=== PATIENT | male | born 1945 | race Caucasian/White ===

== ENCOUNTER 2019-06-14 06:26 | Day surgery (SDC) | payer OTHER ==
--- NOTE | 2019-06-13 14:39 | RAD REPORT ---
EXAM DESCRIPTION: RAD - Chest Pa And Lat (2 Views) - 06/13/2019 2:33 pm CLINICAL HISTORY: preop Chest pain. COMPARISON: No comparisons FINDINGS: The lungs are clear. The heart is normal in size. No displaced fractures. IMPRESSION: No acute or concerning finding suspected.
[2019-06-13 15:34] LABS: Absolute Lymphocytes (CBC) 1.4 K/uL (0.7-4.9); Basophils % 0.3 % (0-1.3); Hematocrit 44.7 % (39.6-49.0); Lymphocytes % 26.8 % (15.3-44.8); MPV 9.9 fL (7.6-11.3); RBC Red Blood Cell Count 4.95 M/uL (4.33-5.43)
[2019-06-13 15:51] LABS: BUN Blood Urea Nitrogen 12 mg/dL (7-18); Bicarbonate 28 mmol/L (21-32); Glucose Level 82 mg/dL (74-106); Potassium 4.2 mmol/L (3.5-5.1); Sodium Level 139 mmol/L (136-145)
[2019-06-14] MEDS ORDERED: Ringers Lactate 1,000 ML IV ONE (07:08)
[2019-06-14] MEDS ORDERED: CEFAZOLIN/SWI 1gm 1 GM/10 ML SYR ONE (07:38)
[2019-06-14] MEDS ORDERED: PROPOFOL 200 MG/20 ML VIAL IV ONE (07:46)
[2019-06-14] MEDS ORDERED: ONDANSETRON 4 MG/2 ML VIAL ONE (07:47)
[2019-06-14] MEDS ORDERED: FENTANYL CITR 100 MCG/2 ML ONE (07:47)
[2019-06-14] MEDS ORDERED: MIDAZOLAM HCL 2 MG/2 ML INJ ONE (07:47)
[2019-06-14] MEDS ORDERED: LIDOCAINE 2% MPF 5 ML VIAL ONE (07:47)
[2019-06-14] MEDS: BUPIVACAINE 0.5% PF 10 ML VIAL ONE ×2 (08:10→08:14)
--- NOTE | 2019-06-14 08:38 | P.BOP ---
Preoperative diagnosis: ulcerated mass right forearm Postoperative diagnosis: BAsal cell carcinoma Primary procedure: Wide excision with frozen section of R forearm basal cell carcinoma 4x4cm Scrap Cutter: Merle Pena (Narcisa) Estimated blood loss: <5cc Specimen: mass Findings: margins free of tumor by pathologyst Anesthesia: General Complications: None Transferred to: Recovery Room Condition: Good
--- NOTE | 2019-06-14 10:50 | EKG ---
Test Date: 2019-06-13 Test Time: 14:29:15 Cover Remover: DAVID MEASUREMENT RESULTS: Intervals: Rate: 60 IL: 162 QRSD: 138 QT: 432 QTc: 432 [place]: P: 55 IL: 162 QRS: -65 T: 32 INTERPRETIVE STATEMENTS: Normal sinus rhythm Right bundle branch block Left anterior fascicular block Bifascicular block Abnormal ECG Compared to ECG 03/23/2016 15:54:24 No significant changes Electronically Signed On 06-14-19 10:49:48 CDT by Krishna Levin
--- NOTE | 2019-06-14 22:41 | OP ---
Surgeon: Kamlesh Martino MD Preoperative Diagnosis: Ulcerative mass, right forearm. basal cell carcinoma, right forearm. Procedure: Wide excision with frozen section of the right forearm, basal cell carcinoma. Estimated Blood Loss: Less than 5 cc. Anesthesia: General plus local. Findings: Basal cell carcinoma, margins free of tumor by pathologist. Indications: This is case of a 74-year-old patient, comes to us with an ulcerative mass in the right forearm, which he thinks is a trauma, but we advised him to have a removed since looked like cancer. He listened to us as a tender area were ulcerations, so we offered him wide excision with frozen se ction under anesthesia. With benefits, alternatives, and risks include, but not limited to infection , bleeding, damage to adjacent structures, anesthesia complication, recurrence, MN, or even . Shemar quarles understands we may not relieve his symptoms. He might need more than one surgical intervention. Shemar quarles understands, he may require wound care. He signed a consent. Description Of Procedure: Patient was brought to the operating room, placed in supine position. Ane sthesia was done without complication. A time-out was called. Right forearm was prepped and draped in a sterile fashion. We proceeded to remove the skin area with a mass at least 1-2 cm margins gross ly. The specimen was sent for orientation. There specimen, but they were protected and p reserved. Specimen sent to the pathologist. Come back with a frozen section. Basal cell carcinoma with margins free of tumor now. This was just a wide gap in the area, so we have to put this differe nt stitches and then we put the deep chromic and then after that, we approximated the skin with nylon , but skin cannot be completely approximated. We have a little gap in between that would require tri ple antibiotics and gauze on top until heal by secondary intention and we cannot advance the skin any more. The area was irrigated. The patient tolerated the procedure well. Sponge count and instrumen t counts were correct. The patient was sent to recovery in stable condition. Disposition: Home. Activity: As tolerated. No heavy lifting. Followup: Follow up in my office in 1 week. Call for appointment [phone]. Keep area dry for 48 ho urs, then may shower. Medications: See orders. HM/MODL Voice ID: [id number] Report ID: [id number]
== END 2019-06-14 10:20 | disposition home or self-care (01) ==
LOC: OR 06:26
PROVIDERS: ATTEND Surgery
PROC: 0HBDXZZ Excision of Right Lower Arm Skin, External Approach (ICD-10-PCS; principal; 2019-06-14 08:15)
DX: C44.612 Basal cell carcinoma of skin of right upper limb, including shoulder (principal); G47.33 Obstructive sleep apnea (adult) (pediatric); K21.9 Gastro-esophageal reflux disease without esophagitis
CPT/HCPCS: 93005; 85025; 80048; 36415; 88331; 88332; 88305; 71046; 11604; J2704; J2250; J3010; J0690; J2405

== ENCOUNTER 2022-10-19 15:48 | Inpatient (IN) | payer OTHER ==
[2022-10-19 16:32] LABS: Absolute Lymphocytes (CBC) 1.6 K/uL (0.7-4.9); Hematocrit 47.3 % (39.6-49.0); Lymphocytes % 30.7 % (15.3-44.8); MCV 89.9 fL (80-100); MPV 8.5 fL (7.6-11.3); RBC Red Blood Cell Count 5.26 M/uL (4.33-5.43)
[2022-10-19 16:40] LABS: Protime INR 1.03
[2022-10-19] MEDS ORDERED: MECLIZINE HCL 12.5 MG TAB ONE (16:42)
[2022-10-19 16:52] LABS: Magnesium 2.2 mg/dL (1.8-2.4); Potassium 3.8 mmol/L (3.5-5.1); Troponin High Sensitivity 4.4 pg/mL (<58.9)
--- NOTE | 2022-10-19 16:56 | RAD REPORT ---
EXAM DESCRIPTION: CT - Head Brain Wo Cont - 10/19/2022 4:45 pm CLINICAL HISTORY: Alteration of awareness/confusion COMPARISON: None TECHNIQUE: Computed axial tomography of the head was obtained. IV contrast was not requested. All CT scans are performed using dose optimization technique as appropriate and may include automated exposure control or mA/KV adjustment according to patient size. FINDINGS: An intracranial bleed is not seen . The ventricles are normal in caliber. Prominent fluid collection posterior fossa has more of the appearance of a serge cisterna magna then a rachnoid cyst No significant hypodensity within the brain. Empty sella turcica Fluid within the sinuses/ mastoids is not seen. IMPRESSION: No acute intracranial abnormality is seen.
[2022-10-19 17:18] LABS: Urine Blood Negative (Negative); Urine Glucose Negative (Negative); Urine Protein Negative (Negative)
--- NOTE | 2022-10-19 17:25 | RAD REPORT ---
EXAM DESCRIPTION: Robert Single View10/19/2022 5:19 pm CLINICAL HISTORY: Dizziness/abnormal EKG COMPARISON: 2018 FINDINGS: The lungs appear clear of acute infiltrate. The heart is normal size IMPRESSION: No acute abnormalities displayed
[2022-10-19 17:31] LABS: Urine Mucus Slight /HPF (None Seen); Urine RBC <5 /HPF (None Seen); Urine WBC Clump Rare /HPF (None Seen)
--- NOTE | 2022-10-19 18:30 | RAD REPORT ---
EXAM DESCRIPTION: MRI - Brain Wo Cont - 10/19/2022 5:41 pm CLINICAL HISTORY: Dizziness COMPARISON: Head CT October 19, 2022 TECHNIQUE: Axial, sagittal, and coronal magnetic resonance images of the brain were obtained. FINDINGS: Mild signal within periventricular, deep and subcortical white matter probably ischemic ch anges secondary to small vessel disease Diffusion-weighted/ADC mapping reveals several punctate areas of abnormal signal within the right occ ipital lobe. 6 x 1 millimeter area of abnormal signal left cerebellum The ventricles are normal caliber. Prominent cisterna magna. Empty sella turcica is present Fluid within the sinuses/mastoids is not seen IMPRESSION: Small area of abnormal signal left cerebellum Several punctate areas of abnormal signal right occipital lobe. These probably are acute/early subacute infarcts.
--- NOTE | 2022-10-19 18:49 | ER ---
Nurse's Notes [facility] [place] Name: Vijay Argueta Age: 77 yrs Sex: Male : 1945 Arrival Date: 10/19/2022 Time: 15:49 Bed 5 Private MD: Diagnosis: Cerebral infarction, unspecified Presentation: 10/19 15:55 Chief complaint: Patient states: DIZZY INTERMITTENTLY x3 DAYS, WENT TO URGENT CARE, bp SENT FROM FOR ABNORMAL EKG. Coronavirus screen: At this time, the client does not indicate any symptoms associated with coronavirus-19. Ebola Screen: No symptoms or risks identified at this time. Initial Sepsis Screen: Does the patient meet any 2 criteria? No. Patient's initial sepsis screen is negative. Does the patient have a suspected source of infection? No. Patient's initial sepsis screen is negative. Risk Assessment: Do you want to hurt yourself or someone else? Patient reports no desire to harm self or others. Onset of symptoms is unknown. 15:55 Method Of Arrival: Ambulatory bp 15:55 Acuity: ALEKS 3 bp Triage Assessment: 16:10 General: Appears in no apparent distress. Behavior is cooperative, appropriate for age, bp anxious. Pain: Denies pain. EENT: No deficits noted. Neuro: Level of Consciousness is awake, alert, obeys commands, Oriented to Appropriate for age Gait is steady, Reports dizziness. Cardiovascular: No deficits noted. Respiratory: No deficits noted. GI: No signs and/or symptoms were reported involving the gastrointestinal system. : No signs and/or symptoms were reported regarding the genitourinary system. Derm: No deficits noted. Musculoskeletal: No deficits noted. Historical: - Allergies: 16:10 No Known Allergies; bp - Home Meds: 16:10 None [Active]; bp - PMHx: 16:10 None; bp - Immunization history:: Adult Immunizations up to date. - Social history:: Smoking status: Patient denies any tobacco usage or history of. Screenin:12 Abuse screen: Denies threats or abuse. Denies injuries from another. Nutritional bp screening: No deficits noted. Tuberculosis screening: No symptoms or risk factors identified. Fall Risk None identified. Assessment: 16:00 General: Appears in no apparent distress. comfortable, Behavior is calm, cooperative, mb9 appropriate for age. 16:00 Pain: Denies pain. Neuro: Mosquera Agitation-Sedation Scale (RASS): 0 - Alert and Calm mb9 Level of Consciousness is awake, alert, obeys commands, Oriented to person, place, time, situation, Appropriate for age Reports dizziness, weakness. Cardiovascular: Heart tones S1 S2 present Rhythm is regular. Respiratory: Airway is patent Respiratory effort is even, unlabored, Respiratory pattern is regular, symmetrical, Breath sounds are clear bilaterally. GI: Abdomen is round Bowel sounds present X 4 quads. Abd is non tender X 4 quads. : No signs and/or symptoms were reported regarding the genitourinary system. EENT: No signs and/or symptoms were reported regarding the EENT system. Derm: Skin is pink, warm \T\ dry. Musculoskeletal: Range of motion: intact in all extremities. 16:12 General: SEE TRIAGE NOTE. bp 16:42 Reassessment: Pt taken to CT scan. mb9 17:28 General: Appears in no apparent distress. comfortable. Pain: Denies pain. Neuro: Level mb9 of Consciousness is awake, alert, obeys commands. Neuro: Denies weakness dizziness. Cardiovascular: Rhythm is regular. Respiratory: Airway is patent. Derm: Skin is pink, warm \T\ dry. 18:35 Reassessment: Patient denies pain at this time. Neuro: Level of Consciousness is awake, mb9 alert, obeys commands, Denies weakness dizziness. Cardiovascular: Rhythm is regular. Respiratory: Airway is patent. Derm: Skin is pink, warm \T\ dry. 19:00 Reassessment: Report given to CHANNING Batres. mb9 20:12 General: attempted to call report . as6 Vital Signs: 15:55 BP 193 / 90; Pulse 77; Resp 20; Temp 97.6; Pulse Ox 100% ; Weight 72.57 kg; Height 5 bp ft. 10 in. (177.80 cm); 16:22 BP 193 / 90 Supine; Pulse 65; Resp 18; Pulse Ox 100% ; mb9 16:22 BP 150 / 83 Sitting; Pulse 72; Resp 14; Pulse Ox 98% on R/A; mb9 16:22 BP 156 / 89 Standing; Pulse 77; Resp 16; Pulse Ox 99% ; mb9 17:28 BP 150 / 83; Pulse 68; Resp 20; Pulse Ox 100% on R/A; Pain 0/10; mb9 20:11 BP 161 / 93; Pulse 62; Resp 17 S; Pulse Ox 99% on R/A; as6 15:55 Body Mass Index 22.96 (72.57 kg, 177.80 cm) bp NIH Stroke Scale Scores: 16:13 NIHSS Score: 0 cp ED Course: 15:49 Patient arrived in ED. as 15:54 Taurus Lizarraga PA is PHCP. cp 15:54 Sundeep Currie MD is Attending Physician. cp 16:05 Triage completed. bp 16:10 Arm band placed on. bp 16:12 Kailey Jenkins, CHANNING is Primary Nurse. mb9 16:12 Patient has correct armband on for positive identification. Bed in low position. Call bp light in reach. Side rails up X2. Adult w/ patient. 16:15 Initial lab(s) drawn, by me, sent to lab. Inserted saline lock: 20 gauge in right aa5 forearm, using aseptic technique. Blood collected. 16:22 Basic Metabolic Panel Sent. mb9 16:22 CBC with Diff Sent. mb9 16:22 Magnesium Sent. mb9 16:22 PT-INR Sent. mb9 16:22 Troponin HS Sent. mb9 16:46 CT Head Brain wo Cont In Process Unspecified. EDMS 17:21 XRAY Chest (1 view) In Process Unspecified. EDMS 17:27 Urine Microscopic Only Sent. mb9 17:43 MRI - Brain Wo Cont In Process Unspecified. EDMS 18:48 Patrice Scherer FNP-C is Hospitalizing Provider. cp 19:22 SARS RAPID Sent. mb9 20:11 No provider procedures requiring assistance completed. Patient admitted, IV remains in as6 place. 20:23 Daniel Galarza MD is Hospitalizing Provider. la1 Administered Medications: 16:50 Drug: Meclizine 25 mg Route: PO; mb9 19:23 Follow up: Response: No adverse reaction mb9 19:21 Drug: Aspirin Chewable Tablet 81 mg Route: PO; mb9 20:45 Follow up: Response: No adverse reaction as6 19:21 Drug: foLIC Acid 1 mg Route: IVPB; Site: left forearm; mb9 19:21 Drug: NS 0.9% 500 ml Route: IV; Rate: 100 ml/hr; Site: right forearm; mb9 Medication: 16:12 VIS not applicable for this client. bp Outcome: 18:49 Decision to Hospitalize by Provider. cp 20:44 Admitted to Med/surg accompanied by tech, family with patient, via wheelchair, room as6 205, with chart. 20:44 Condition: stable 20:44 Instructed on the need for admit. 21:02 Patient left the ED. as6 NIH Stroke Scale - NIH Stroke Score Date: 10/19/2022 Time: 16:13 Total Score = 0 1a. Level of Consciousness (LOC) - 0(Alert) 1b. Level of Consciousness (LOC) (Month \T\ Age) - 0(Both) 1c. LOC Commands (Open \T\ Closes Eyes/Humanities Department Chair) - 0(Both) 2. Best Gaze (Lateral Gaze Paresis) - 0(Normal) 3. Visual Field Loss - 0(No visual loss) 4. Facial Palsy - 0(Normal) 5a. Left Arm: Motor (10-second hold) - 0(No drift) 5b. Right Arm: Motor (10-second hold) - 0(No drift) 6a. Left Leg: Motor (5-second hold - always test supine) - 0(No drift) 6b. Right Leg: Motor (5-second hold - always test supine) - 0(No drift) 7. Limb Ataxia (finger/nose \T\ heel/trivedi - test with eyes open) - 0(Absent) 8. Sensory Loss (pinprick arms/legs/face) - 0(Normal) 9. Best Language: Aphasia (description/naming/reading) - 0(No aphasia) 10. Dysarthria (speech clarity - read or repeat words) - 0(Normal) 11. Extinction and Inattention (visual/tactile/auditory/spatial/personal) - 0(No abnormality) Initials: cp Signatures: Dispatcher [employer] Judit Alexander Audri, RN RN aa5 Patrice Scherer, HAND NAILER-C HAND NAILER-Cla1 Taurus Lizarraga PA PA cp Leland Cheema, CHANNING SNELL bp Medardo Sanchez, CHANNING RN as6 Kailey Jenkins, RN RN mb9
--- NOTE | 2022-10-19 18:49 | EDPHYS ---
Physician Documentation [facility] Name: Vijay Argueta Age: 77 yrs Sex: Male : 1945 Arrival Date: 10/19/2022 Time: 15:49 Bed 5 Private MD: ED Physician Sundeep Currie HPI: 10/19 16:00 This 77 yrs old Male presents to ER via Ambulatory with complaints of abnormal ekg. cp 16:00 The patient's problem is reported as dizziness. cp 16:00 Onset: The symptoms/episode began/occurred 3 day(s) ago. Duration: The episodes are cp intermittent. Associated signs and symptoms: Pertinent positives: lightheadedness, Pertinent negatives: abdominal pain, blurred vision, chest pain, confusion, headache, palpitations. Patient's baseline: Neuro: alert and fully oriented, Motor: no deficits, Ambulation: walks without assistance, Speech: normal. 16:00 Patient reports he went to urgent care today to be evaluated for dizziness and was cp referred to ED after having abnormal EKG. Patient denies chest pain. Historical: - Allergies: 16:10 No Known Allergies; bp - Home Meds: 16:10 None [Active]; bp - PMHx: 16:10 None; bp - Immunization history:: Adult Immunizations up to date. - Social history:: Smoking status: Patient denies any tobacco usage or history of. ROS: 16:05 Constitutional: Negative for body aches, chills, fever, poor PO intake. cp 16:05 Eyes: Negative for injury, pain, redness, and discharge. cp 16:05 ENT: Negative for drainage from ear(s), ear pain, sore throat, difficulty swallowing, difficulty handling secretions. 16:05 Cardiovascular: Negative for chest pain, edema, palpitations. 16:05 Respiratory: Negative for cough, shortness of breath, wheezing. 16:05 Abdomen/GI: Negative for abdominal pain, nausea, vomiting, and diarrhea. 16:05 Skin: Negative for rash. 16:05 Neuro: Positive for dizziness, Negative for altered mental status, headache, numbness, syncope, near syncope, weakness. 16:05 All other systems are negative. Exam: 16:10 ECG was reviewed by the Attending Physician. cp 16:13 Constitutional: The patient appears in no acute distress, alert, awake, cp non-diaphoretic, non-toxic, well developed, well nourished. 16:13 Head/Face: Normocephalic, atraumatic. cp 16:13 Eyes: Periorbital structures: appear normal, Pupils: equal, round, and reactive to light and accomodation, Extraocular movements: intact throughout, Conjunctiva: normal, Sclera: no appreciated abnormality, Lids and lashes: appear normal, bilaterally. 16:13 ENT: External ear(s): are unremarkable, Nose: is normal, Mouth: Lips: moist, Oral mucosa: pink and intact, moist, Posterior pharynx: Airway: no evidence of obstruction, patent. 16:13 Neck: ROM/movement: is normal, is supple, without pain, no range of motions limitations. 16:13 Chest/axilla: Inspection: normal. 16:13 Cardiovascular: Rate: normal, Rhythm: regular, Edema: is not appreciated, JVD: is not appreciated. 16:13 Respiratory: the patient does not display signs of respiratory distress, Respirations: normal, no use of accessory muscles, no retractions, labored breathing, is not present, Breath sounds: are clear throughout, no decreased breath sounds, no stridor, no wheezing. 16:13 Abdomen/GI: Inspection: abdomen appears normal, Palpation: abdomen is soft and non-tender, in all quadrants. 16:13 Back: pain, is absent, ROM is normal. 16:13 Skin: cellulitis, is not appreciated, no rash present. 16:13 Neuro: Orientation: to person, place \T\ time. Mentation: able to follow commands, slow to respond, Cerebellar function: Romberg testing is negative, normal finger to nose testing, heel to trivedi testing is normal, Motor: moves all fours, strength is normal, Sensation: is normal. 17:05 Radiologist reports: no acute findings cp Vital Signs: 15:55 BP 193 / 90; Pulse 77; Resp 20; Temp 97.6; Pulse Ox 100% ; Weight 72.57 kg; Height 5 bp ft. 10 in. (177.80 cm); 16:22 BP 193 / 90 Supine; Pulse 65; Resp 18; Pulse Ox 100% ; mb9 16:22 BP 150 / 83 Sitting; Pulse 72; Resp 14; Pulse Ox 98% on R/A; mb9 16:22 BP 156 / 89 Standing; Pulse 77; Resp 16; Pulse Ox 99% ; mb9 17:28 BP 150 / 83; Pulse 68; Resp 20; Pulse Ox 100% on R/A; Pain 0/10; mb9 20:11 BP 161 / 93; Pulse 62; Resp 17 S; Pulse Ox 99% on R/A; as6 15:55 Body Mass Index 22.96 (72.57 kg, 177.80 cm) bp NIH Stroke Scale Scores: 16:13 NIHSS Score: 0 cp MDM: 16:00 Patient medically screened. cp 17:00 Differential diagnosis: CVA, metabolic disorder, drug effects, cardiac arrythmia, acute cp IL, vertigo. 18:40 Data reviewed: vital signs, nurses notes, lab test result(s), EKG, radiologic studies, cp CT scan, MRI. 18:40 Test interpretation: by ED physician or midlevel provider: ECG, plain radiologic cp studies. Counseling: I had a detailed discussion with the patient and/or guardian regarding: the historical points, exam findings, and any diagnostic results supporting the discharge/admit diagnosis, lab results, radiology results, the need for further work-up and treatment in the hospital. Physician consultation: Patrice PITTMAN was contacted at 18:40, regarding admission, to the telemetry unit. patient's condition, and will see patient in ED, shortly. 10/19 16:02 Order name: Basic Metabolic Panel; Complete Time: 17:01 10/19 17:01 Interpretation: Normal except: GFR 89. 10/19 16:02 Order name: CBC with Diff; Complete Time: 17:01 10/19 16:02 Order name: Magnesium; Complete Time: 17:01 10/19 16:02 Order name: PT-INR; Complete Time: 17:01 10/19 16:02 Order name: Troponin HS; Complete Time: 17:01 10/19 17:01 Interpretation: Reviewed. 10/19 16:42 Order name: Urine Microscopic Only; Complete Time: 17:33 10/19 17:33 Interpretation: Reviewed. 10/19 16:02 Order name: XRAY Chest (1 view); Complete Time: 17:31 10/19 16:02 Order name: CT Head Brain wo Cont; Complete Time: 17:01 10/19 17:01 Interpretation: Report reviewed. 10/19 16:46 Order name: MRI - Brain Wo Cont; Complete Time: 18:33 bd 10/19 18:34 Interpretation: Report reviewed. 10/19 17:18 Order name: Urine Dipstick-Ancillary; Complete Time: 17:31 EDMS 10/19 17:31 Interpretation: Normal except: UKET Trace. 10/19 19:06 Order name: SARS RAPID; Complete Time: 19:45 as6 10/19 19:45 Interpretation: Reviewed. 10/19 16:02 Order name: EKG; Complete Time: 16:03 cp 10/19 16:02 Order name: Cardiac monitoring; Complete Time: 16:10 cp 10/19 16:02 Order name: EKG - Nurse/Tech; Complete Time: 16:10 10/19 16:02 Order name: IV Saline Lock; Complete Time: 16:22 cp 10/19 16:02 Order name: Labs collected and sent; Complete Time: 16:22 cp 10/19 16:02 Order name: O2 Per Protocol; Complete Time: 16:10 10/19 16:02 Order name: O2 Sat Monitoring; Complete Time: 16:10 10/19 16:02 Order name: Orthostatics; Complete Time: 16:22 10/19 16:42 Order name: Urine Dipstick-Ancillary (obtain specimen); Complete Time: 17:27 cp EC:10 Rate is 62 beats/min. Rhythm is regular. IN interval is normal. QRS interval is cp prolonged at 132 msec. QT interval is normal. T waves are Inverted in lead aVR. Interpreted by me. Reviewed by me. Administered Medications: 16:50 Drug: Meclizine 25 mg Route: PO; mb9 19:23 Follow up: Response: No adverse reaction mb9 19:21 Drug: Aspirin Chewable Tablet 81 mg Route: PO; mb9 20:45 Follow up: Response: No adverse reaction as6 19:21 Drug: foLIC Acid 1 mg Route: IVPB; Site: left forearm; mb9 19:21 Drug: NS 0.9% 500 ml Route: IV; Rate: 100 ml/hr; Site: right forearm; mb9 Disposition: 10/20 10:52 Co-signature as Attending Physician, Sundeep Currie MD I agree with the assessment and kdr plan of care. Disposition Summary: 10/19/22 18:49 Hospitalization Ordered Hospitalization Status: Inpatient Admission cp Location: Telemetry/MedSurg (Inpatient) cp Condition: Stable cp Problem: new cp Symptoms: are unchanged cp Bed/Room Type: Standard cp Room Assignment: 205(10/19/22 19:53) Provider: Daniel Galarza(10/19/22 20:23) la1 Diagnosis - Cerebral infarction, unspecified cp Forms: - Medication Reconciliation Form cp - SBAR form cp NIH Stroke Scale - NIH Stroke Score Date: 10/19/2022 Time: 16:13 Total Score = 0 1a. Level of Consciousness (LOC) - 0(Alert) 1b. Level of Consciousness (LOC) (Month \T\ Age) - 0(Both) 1c. LOC Commands (Open \T\ Closes Eyes/Spool Cleaner) - 0(Both) 2. Best Gaze (Lateral Gaze Paresis) - 0(Normal) 3. Visual Field Loss - 0(No visual loss) 4. Facial Palsy - 0(Normal) 5a. Left Arm: Motor (10-second hold) - 0(No drift) 5b. Right Arm: Motor (10-second hold) - 0(No drift) 6a. Left Leg: Motor (5-second hold - always test supine) - 0(No drift) 6b. Right Leg: Motor (5-second hold - always test supine) - 0(No drift) 7. Limb Ataxia (finger/nose \T\ heel/trivedi - test with eyes open) - 0(Absent) 8. Sensory Loss (pinprick arms/legs/face) - 0(Normal) 9. Best Language: Aphasia (description/naming/reading) - 0(No aphasia) 10. Dysarthria (speech clarity - read or repeat words) - 0(Normal) 11. Extinction and Inattention (visual/tactile/auditory/spatial/personal) - 0(No abnormality) Initials: cp Signatures: Dispatcher [employer] EDMS Kandace Park RN RN Sundeep Currie MD MD kdr Attema, Lee, STRUCTURAL STEEL DETAILER-C STRUCTURAL STEEL DETAILER-Cla1 Taurus Lizarraga PA PA cp Peltier, Brian, RN RN Kailey Hopson RN RN mb9 Medardo Sanchez RN as6 Corrections: (The following items were deleted from the chart) 10/19 19:46 18:35 This 77 yrs old Male presents to ER via Ambulatory with complaints of cp abnormal ekg. cp 19:53 18:49 cp mw 20:23 18:49 Patrice Scherer cp la1
[2022-10-19] MEDS ORDERED: NA CHLORIDE 0.9% 500 ML ONE (19:03)
[2022-10-19] MEDS ORDERED: ASPIRIN 81 MG CHEWABLE TABLET ONE (19:03)
[2022-10-19] MEDS ORDERED: FOLIC ACID 5 MG/ML VIAL ONE (19:04)
--- NOTE | 2022-10-19 19:27 | P.HP ---
Certification for Inpatient Patient admitted to: Inpatient With expected LOS: >2 Midnights Patient will require the following post-hospital care: None Practitioner: I am a practitioner with admitting privileges, knowledge of patient current condition, hospital course, and medical plan of care. Services: Services provided to patient in accordance with Admission requirements found in Title 42 Section 412.3 of the Code of Federal Regulations <Patrice Scherer Ashlyn Sebastian - Last Filed: 10/19/22 19:24> Patient History Date of Service: 10/19/22 Reason for admission: CVA History of Present Illness: 77-year-old male with no known past medical history presents the emergency department for 3 days of intermittent dizziness/disequilibrium. His NIH was 0 although he reports some gait instability. His labs were unremarkable chest x- ray showed no acute abnormalities, CT head without contrast negative for acute findings, MRI brain without contrast revealed 6 x 1 mm area of abnormal signal left cerebellum, several punctate areas of abnormal signal right occipital lobe probably acute/early subacute infarcts. Patient was given aspirin, folic acid in ED, ED provider wishes to admit for further evaluation and management of ischemic CVA. - Past Medical/Surgical History -: None -: Skin cancer removal Psychosocial/ Personal History: Patient lives at home with his - Family History Brother -: Hypertension Father -: Heart disease - Social History Smoking Status: Never smoker Alcohol use: No CD- Drugs: No Caffeine use: Yes Place of Residence: Home <Patrice Scherer - Last Filed: 10/19/22 19:24> Date of Service: 10/20/22 <Daniel Galarza - Last Filed: 10/20/22 14:20> Allergies No Known Allergies Allergy (Verified 06/13/19 14:18) Review of Systems 10-point ROS is otherwise unremarkable General: Other (Disequilibrium/dizziness) <Patrice Scherer - Last Filed: 10/19/22 19:24> Physical Examination - Physical Exam General: Alert, In no apparent distress, Oriented x3 HEENT: Atraumatic, PERRLA, Mucous membr. moist/pink, EOMI, Sclerae nonicteric Neck: Supple, 2+ carotid pulse no bruit, No LAD, Without JVD or thyroid abnormality Respiratory: Clear to auscultation bilaterally, Normal air movement Cardiovascular: Regular rate/rhythm, Normal S1 S2 Capillary refill: <2 Seconds Gastrointestinal: Normal bowel sounds, No tenderness Musculoskeletal: No tenderness Integumentary: No rashes Neurological: Normal gait, Normal speech, Normal strength at 5/5 x4 extr, Normal tone, Normal affect Lymphatics: No axilla or inguinal lymphadenopathy - Studies Laboratory Data (last 24 hrs) 10/19/22 16:10: PT 11.3, INR 1.03 10/19/22 16:10: WBC 5.30, Hgb 16.1, Hct 47.3, Plt Count 177 10/19/22 16:10: Sodium 136, Potassium 3.8, BUN 12, Creatinine 0.90, Glucose 96, Magnesium 2.2 <Patrice Scherer - Last Filed: 10/19/22 19:24> - Studies Laboratory Data (last 24 hrs) 10/19/22 16:10: PT 11.3, INR 1.03 10/19/22 16:10: WBC 5.30, Hgb 16.1, Hct 47.3, Plt Count 177 10/19/22 16:10: Sodium 136, Potassium 3.8, BUN 12, Creatinine 0.90, Glucose 96, Magnesium 2.2 <Daniel Galarza - Last Filed: 10/20/22 14:20> Assessment and Plan - Plan Assessment: Ischemic CVA Plan: Ischemic CVA: NIH-0, reports mild disequilibrium, difficulty with ambulation/gait. Blood pressure elevated in ED, will allow for permissive hypertension currently patient likely require medication for hypertension at discharge, has not been to the doctor in many years does not take the medications at home. Will obtain echocardiogram, carotid Doppler, physical therapy consult, lipid panel. Initiate aspirin, statin, Plavix. Appreciate further input from neurology. DVT PPX: Lovenox Code status: Full Discharge Plan: Home Plan to discharge in: 48 Hours - Advance Directives Does patient have a Living Will: No Does patient have a Durable POA for Healthcare: No - Code Status/Comfort Care Code Status Assessed: Yes (Full code) Critical Care: No Time Spent Managing Pts Care (In Minutes): 55 <Patrice Scherer - Last Filed: 10/19/22 19:24> Physician Review: Patient Assessed, Agree with Above Assessment and Plan <Daniel Galarza - Last Filed: 10/20/22 14:20>
[2022-10-19 19:42] LABS: SARS-CoV-2 Antigen Rapid Res Negative (Negative)
[2022-10-19] MEDS ORDERED: ATORVASTATIN 40 MG TAB PO SCH (21:09)
[2022-10-19] MEDS ORDERED: ONDANSETRON 4 MG/2 ML VIAL IV PRN (21:09)
[2022-10-19] MEDS ORDERED: ACETAMINOPHEN 500 MG TAB PO PRN (21:09)
[2022-10-19] MEDS ORDERED: MELATONIN 5 MG TABLET PO PRN (21:09)
[2022-10-19 23:42] VITALS: BMI 22.9
[2022-10-20 00:21] VITALS: O2SAT 99
[2022-10-20 04:51] LABS: Absolute Lymphocytes (CBC) 2.2 K/uL (0.7-4.9); Hematocrit 42.4 % (39.6-49.0); Lymphocytes % 39.2 % (15.3-44.8); MCV 88.7 fL (80-100); MPV 8.6 fL (7.6-11.3); RBC Red Blood Cell Count 4.78 M/uL (4.33-5.43)
[2022-10-20 05:21] LABS: Potassium 4.3 mmol/L (3.5-5.1); Thyroid Stimulating Hormone 3.7 uIU/mL (0.360-3.740)
[2022-10-20] MEDS ORDERED: INFLUENZA VACCINE (for 6+ mo) 0.5 ML DOSE IMVAC ONE (08:00)
[2022-10-20] MEDS ORDERED: PNEUMOCOCCAL VACCINE 0.5 ML IMVAC ONE (08:00)
--- NOTE | 2022-10-20 08:29 | RAD REPORT ---
EXAM DESCRIPTION: - CP - 10/20/2022 5:34 am CLINICAL HISTORY: cva Headache, drowsiness, CVA symptomology COMPARISON: No comparisons TECHNIQUE: Real-time sonographic evaluation of both carotid systems was performed. Doppler interroga tion was performed with waveform tracing bilaterally. FINDINGS: Normal high resistance waveforms are noted in both external carotid arteries. The common c arotid arteries and internal carotid arteries show normal low resistance waveforms. Mild mixed plaque is seen in both carotid bulbs. Peak systolic and end diastolic velocity values and the ICA/CCA ratios are in the non-hemodynamically significant range. Antegrade flow seen in both vertebral arteries. IMPRESSION: Mild mixed plaque is seen in both carotid bulbs. No evidence of a hemodynamically significant stenosis.
--- NOTE | 2022-10-20 08:38 | EKG ---
Test Date: 2022-10-19 Test Time: 16:05:37 Etl Lead: ARASH MEASUREMENT RESULTS: Intervals: Rate: 62 KS: 164 QRSD: 136 QT: 436 QTc: 442 [place]: P: 68 KS: 164 QRS: -63 T: 34 INTERPRETIVE STATEMENTS: Normal sinus rhythm Right bundle branch block Left anterior fascicular block Bifascicular block Abnormal ECG Compared to ECG 06/13/2019 14:29:15 No significant changes Electronically Signed On 10-20-22 08:34:43 [employer] DETECTIVE by Anshu Zavala
[2022-10-20] MEDS ORDERED: CLOPIDOGREL 75 MG TABLET PO SCH (09:00)
[2022-10-20] MEDS ORDERED: FOLIC ACID 1 MG TABLET PO SCH (09:00)
[2022-10-20] MEDS ORDERED: ASPIRIN EC 81 MG TAB PO SCH (09:00)
[2022-10-20] MEDS ORDERED: ENOXAPARIN 40 MG/0.4 ML SQ SCH (09:00)
[2022-10-20 12:13] VITALS: BP 135/68; TEMP 97.7
--- NOTE | 2022-10-20 13:39 | ECHO ---
HEIGHT: 5 ft 10 in WEIGHT: 159 lb 15.831 oz DATE OF STUDY: 10/20/[address]: Patrice Scherer NP 2-DIMENSIONAL: YES M.MODE: YES DOPPLER: YES COLOR FLOW: YES TDS: PORTABLE: YES DEFINITY: BUBBLE STUDY: DIAGNOSIS: CEREBRAL VASCULAR ACCIDENT CARDIAC HISTORY: CATHERIZATION: NO SURGERY: NO PROSTHETIC VALVE: NO PACEMAKER: NO MEASUREMENTS (cm) DIASTOLIC (NORMALS) SYSTOLIC (NORMALS) IVSd 1.1 (0.6-1.2) LA Diam 3.4 (1.9-4.0) LVEF 60-65% LVIDd 3.7 (3.5-5.7) LVIDs 2.1 (2.0-3.5) %FS 43% LVPWd 1.1 (0.6-1.2) Ao Diam 3.3 (2.0-3.7) 2 DIMENSIONAL ASSESSMENT: RIGHT ATRIUM: NORMAL LEFT ATRIUM: NORMAL RIGHT VENTRICLE: NORMAL LEFT VENTRICLE: NORMAL TRICUSPID VALVE: MILD TRICUPSID REGURGITATION MITRAL VALVE: MILD REGURGITATION PULMONIC VALVE: NORMAL AORTIC VALVE: NORMAL PERICARDIAL EFFUSION: NONE AORTIC ROOT: NORMAL LEFT VENTRICULAR WALL MOTION: NORMAL DOPPLER/COLOR FLOW: SEE BELOW COMMENTS: 1. NORMAL LEFT VENTRICULAR EJECTION FRACTION 60-65% 2. NORMAL WALL MOTION 3. MILD MITRAL REGURGITATION 4. MILD TRICUSPID REGURGITATION 5. GRADE I DIASTOLIC DYSFUNCTION TECHNOLOGIST: KAY VARMA
--- NOTE | 2022-10-20 14:27 | P.DS ---
Admission Date: 10/19/22 Discharge Date: 10/20/22 Disposition: DC HOME/HOME HEALTH CARE Discharge Condition: GOOD Reason for Admission: CVA Consultations: 1. Neurology Hospital Course: DIAGNOSES: # Acute Left Cerebellar Cerebrovascular Accident # Several Right Occipital Lobe Punctate Infarctions HOSPITAL COURSE: Mr. Vijay Argueta is a pleasant 77 year old male with no reported past medical history who was admitted to [facility] on 10/19/2022 for dizziness. He was admitted to the Medicine service. His chest x-ray revealed, "no acute abnormalities displayed." His CT head revealed, "no acute intracranial abnormality is seen." His MRI brain revealed, "small area of abnormal signal left cerebellum. Several punctate areas of abnormal signal right occipital lobe. These probably are acute/early subacute infarcts." His carotid ultrasound revealed, "mild mixed plaque is seen in both carotid bulbs. No evidence of a hemodynamically significant stenosis." His transthoracic echocardiogram revealed, "1. normal left ventricular ejection fraction 60-65% 2. normal wall motion 3. mild mitral regurgitation 4. mild tricuspid regurgitation 5. grade i diastolic dysfunction." He was evaluated by PT/OT, who recommended that he be discharged with home health. Neurology was consulted and he was evaluated by Dr. Verma. Dr. Verma felt that his cerebrovascular accidents were likely secondary to an underlying arrhythmia, possibly paroxysmal atrial fibrillation. He recommended starting apixaban in place of aspirin and clopidogrel. I spoke with Dr. Wong, who reviewed his transthoracic echocardiogram. He agreed to have Mr. Argueta follow-up with him in clinic for a cardiac event monitor. He agrees with apixaban 5 mg twice daily. He has been cleared for discharge from Neurology and Cardiology's standpoints. On 10/20/2022, he was seen on rounds and deemed medically stable for discharge. He was discharged with instructions to schedule follow-up appointments with his PCP, with Cardiology (Dr. Wong), and with Neurology (Dr. Verma). He was provided prescriptions for atorvastatin and apixaban. He and his were given the opportunity to ask questions and reported no further questions. Furthermore, all questions were answered to the best of my ability. A copy of this discharge summary will be sent to the above providers to facilitate continuity of care. Today, I personally spent 25 minutes on his case, of which greater than 50% of the time was spent in patient education, counseling, and coordination of care as described above. NIH Stroke Scale 1a. Level of consciousness: 0 - Alert; keenly responsive 1b. LOC questions: 0 - Both questions right 1c. LOC commands: 0 - Performs both tasks 2. Best Gaze: 0 - Normal 3. Visual: 0 - No visual loss 4. Facial Palsy: 0 - Normal symmetry 5a. Motor left arm: 0 - No drift for 10 seconds 5b. Motor right arm: 0 - No drift for 10 seconds 6a. Motor left le - No drift for 5 seconds 6b. Motor right le - No drift for 5 seconds 7. Limb ataxia: 0 - No ataxia 8. Sensory: 0 - Normal; no sensory loss 9. Best Language: 0 - Normal; no aphasia 10. Dysarthria: 0 - Normal 11. Extinction and Inattention: 0 - No abnormality 12. Distal motor function: 0 - No abnormality Total Score: 0 Vital Signs/Physical Exam: Temp Pulse Resp BP Pulse Ox 97.7 F 67 18 135/68 96 10/20/22 12:00 10/20/22 12:00 10/20/22 12:00 10/20/22 12:00 10/20/22 12:00 General: Alert, In no apparent distress, Oriented x3 HEENT: Atraumatic, PERRLA, Mucous membr. moist/pink, EOMI, Sclerae nonicteric Neck: Supple, JVD not distended Respiratory: Clear to auscultation bilaterally, Normal air movement Cardiovascular: No edema, Regular rate/rhythm, Normal S1 S2, No gallops, No rubs, No murmurs Capillary refill: <2 Seconds Gastrointestinal: Normal bowel sounds, Soft and benign, Non-distended, No tenderness, No rebound, No guarding Musculoskeletal: No clubbing Integumentary: No rashes Neurological: Normal speech, Normal strength at 5/5 x4 extr, Normal tone, Sensation intact, Cranial nerves 3-12 intact, Normal affect Laboratory Data at Discharge: WBC 5.60 K/uL (4.3-10.9) 10/20/22 04:30 Hgb 14.5 g/dL (13.6-17.9) D 10/20/22 04:30 Hct 42.4 % (39.6-49.0) 10/20/22 04:30 Plt Count 160 K/uL (152-406) 10/20/22 04:30 PT 11.3 SECONDS (9.5-12.5) 10/19/22 16:10 INR 1.03 10/19/22 16:10 Sodium 137 mmol/L (136-145) 10/20/22 04:30 Potassium 4.3 mmol/L (3.5-5.1) D 10/20/22 04:30 BUN 10 mg/dL (7-18) 10/20/22 04:30 Creatinine 0.95 mg/dL (0.55-1.3) 10/20/22 04:30 Glucose 93 mg/dL (74-106) 10/20/22 04:30 Magnesium 2.2 mg/dL (1.8-2.4) 10/19/22 16:10 Triglycerides 151 mg/dL (<150) H 10/20/22 04:30 Cholesterol 180 mg/dL (<200) 10/20/22 04:30 HDL Cholesterol 42 mg/dL (40-60) 10/20/22 04:30 Cholesterol/HDL Ratio 4.29 10/20/22 04:30 Home Medications: Apixaban [Eliquis] 5 mg PO BID #60 tab 10/20/22 Atorvastatin Calcium [Lipitor] 40 mg PO BEDTIME #30 tab 10/20/22 Folic Acid 1 mg PO DAILY #1 10/20/22 New Medications: Apixaban [Eliquis] 5 mg PO BID #60 tab Folic Acid 1 mg PO DAILY #1 Atorvastatin Calcium [Lipitor] 40 mg PO BEDTIME #30 tab Physician Discharge Instructions: 1. Please call and schedule a follow-up appointment with your PCP in 3-5 days 2. Please call and schedule a follow-up appointment with Neurology (Dr. Verma) in 1-2 weeks 3. Please call and schedule a follow-up appointment with Cardiology (Dr. Wong) at your earliest convenience - He will need to schedule you to receive a cardiac rhythm monitor from his clinic Diet: AHA Activity: Fall precautions Followup: NONE,NONE [Primary Care Provider] - Cooper Wong MD [ACTIVE - CAN ADMIT] - Asher Verma MD [ASSOCIATE-ACTIVE - CAN ADMIT] - Time spent managing pt's care (in minutes): 25
[2022-10-20] MEDS ORDERED: APIXABAN 5 MG TABLET PO SCH (21:00)
--- NOTE | 2022-10-21 00:40 | CON ---
Reason For Consultation: Consultation called because of stroke. History Of Present Illness: Mr. Argueta is a 77-year-old right-handed patient, who does not t taras medications and likely has untreated hypertension, who comes to [facility] with 3 days' worth of intermittent unsteady gait and some nausea or dizziness. At [facility] he was not considered a candidate for TNK as he is way out of a window of onset of 4.5 hours. His NIH Stroke Sc candelaria was also 0. His head CT scan identified no acute ischemic or hemorrhagic changes while his elect rocardiogram showed normal sinus rhythm with right bundle-branch block. However, his brain MRI done later in the day identified several punctate areas of abnormal signal within the right occipital lobe and a 6 x 1 mm area of abnormal signal in the left cerebellum consistent with acute and early subacu te infarcts in the left cerebellum and right occipital lobe. The patient said his symptoms have impr phyllis somewhat while hospitalized. He did receive IV fluids. He was also given aspirin 81 mg daily a nd Plavix and then started on Eliquis 5 mg twice daily. He did receive Lipitor 40 mg at bedtime and Lovenox for DVT prophylaxis. Past Medical History: Likely untreated hypertension. Past Surgical History: Skin cancers removed. Family History: Hypertension in brother and father and heart disease in both brother and father. Social History: Denies alcohol, tobacco, or IV drug use. Allergies: NO KNOWN DRUG ALLERGIES. Home Medications: None. Review of Systems: Aside from mentioned above, he denies any recent fevers or chills, myalgias, arthralgias, rash, heada yahaira, weight change, psychiatric complaints, or other positives on a 10 point systems review. Physical Examination: Vital Signs: Blood pressure 135/68, pulse 67, respiratory rate 18, temperature 97.7, oxygen saturati on 98%. Weight 159 pounds, height 5 feet 10 inches. General: Mr. Argueta is resting in bed. He is in no acute distress. HEENT: He is normocephalic, atraumatic. Sclerae anicteric. Oropharynx is pink and moist. Neck: Supple. Chest: Clear. Heart: Regular. Extremities: No clubbing, cyanosis, or edema. Neurologic: He is alert and oriented to person, place, and situation. He has no expressive or medical receptionist medical assistant tive aphasias. Cranial nerve examination did not reveal any focal deficits. His motor examination d oes not reveal any weakness in the upper and lower extremities. He has normal bulk and tone. In ter ms of his coordination, he has subtle dysmetria noted in the left upper extremity. Regarding his gai t, he did not have evidence of ataxia. He ambulated over 300 feet without an assistive device with g ood functional stepping. No loss of balance. Normal arm swing. Reflexes 2+ in upper and lower extr emities. Laboratory Studies: Complete blood count with differential is normal. Coagulation panel shows pipe l INR of 1.03. Chemistries: All unremarkable. Hemoglobin A1c 5.4. Triglycerides elevated to 151, total cholesterol 180, LDL cholesterol 108, HDL 42. TSH 7.70, free T4 0.92. Urinalysis shows trace ketones, otherwise unremarkable. COVID-19 testing is negative. Echocardiogram shows an essentially normal study with ejection fraction of 60% to 65% and mild mitral and tricuspid regurgitation. There is grade 1 diastolic dysfunction. Carotid artery ultrasound showed mild mixed plaque in both bulbs with no evidence of hemodynamically significant stenosis. Assessment: Mr. Argueta is a 77-year-old patient with right and left posterior circulation strokes with the possibility of atrial fibrillation being the source. He also has untreated hypertension, which is contributory actually to small vessel disease identified in the brain MRI. He has no obvious defi cits except potential subtle dysmetria on the left upper extremity. Plan: 1.Eliquis 5 mg twice daily. 2.Folic acid 1 mg daily. 3.Lipitor 40 mg at bedtime. 4.He should maintain a blood pressure diary and may require antihypertensive medications. It should be noted that at the time of his hospital admission, his systolic blood pressure was elevated up to 190, likely due to autoregulation. 5.Patient may be discharged home with followup in Dr. Verma's clinic in 1 month. MONSERRAT/SHAHID Voice ID: [id number] Report ID: [id number]
== END 2022-10-20 16:17 | disposition home health service (06) | DRG 66 ==
LOC: ER 15:48 → ERHOLD 19:32 → 2ND 20:17
PROVIDERS: ADMIT Internal Medicine; ATTEND Internal Medicine
DX: I63.9 Cerebral infarction, unspecified (principal); I10 Essential (primary) hypertension; I48.0 Paroxysmal atrial fibrillation; R42 Dizziness and giddiness; R29.700 NIHSS score 0; Z79.01 Long term (current) use of anticoagulants; Z79.82 Long term (current) use of aspirin; Z79.02 Long term (current) use of antithrombotics/antiplatelets; Z79.899 Other long term (current) drug therapy; Z85.828 Personal history of other malignant neoplasm of skin; Z20.822 Contact with and (suspected) exposure to COVID-19
CPT/HCPCS: 36415; 70450; 70551; 71045; 80048; 80061; 81003; 81015; 83036; 83735; 84439; 84443; 84484; 85025; 85610; 87811; 93005; 93306; 93880; 96374; 97116; 97161; 97165; 99285; J1650; J7040; J8597